=== PATIENT | female | born 1950 | race Caucasian/White ===

== ENCOUNTER 2022-06-01 02:07 | Emergency (ER) | payer MEDICARE, MEDICAID ==
[~2022-06-01] VITALS: Ht 157.5 cm; Wt 81.8 kg
[~2022-06-01 02:07] MED LIST: ASPI-1265 PO; LACT1CAP73 PO; LEVO75TA57 PO; NOR5T PO; PRAV10TA38 PO; WALKERFR
[2022-06-01 02:18] VITALS: BP 140/80
[2022-06-01] MEDS ORDERED: morphine 4 MG/ML inj SYRINge IV ONE (02:55)
--- NOTE | 2022-06-01 04:09 | NUR ---
PT AMBULATED TO AND FROM RESTROOM WITH WALKER AND STEADY GATE
== END 2022-06-01 04:43 | disposition home or self-care (01) ==
LOC: ER 02:08
DX: S43.085A Other dislocation of left shoulder joint, initial encounter (principal); E78.00 Pure hypercholesterolemia, unspecified; I10 Essential (primary) hypertension; E03.9 Hypothyroidism, unspecified; Z90.710 Acquired absence of both cervix and uterus; Z72.89 Other problems related to lifestyle; Z86.73 Personal history of transient ischemic attack (TIA), and cerebral infarction without residual deficits; Z98.890 Other specified postprocedural states; Z79.82 Long term (current) use of aspirin; Z79.899 Other long term (current) drug therapy; W18.39XA Other fall on same level, initial encounter; Y93.89 Activity, other specified; Y92.89 Other specified places as the place of occurrence of the external cause; Y99.8 Other external cause status
CPT/HCPCS: 23650; 73030; 73060; 96374; 99284; J2270; A4565